=== PATIENT | female | born 1975 | race Hispanic/Latino ===

== ENCOUNTER 2017-09-14 13:56 | Emergency (ER) | payer OTHER, SELFPAY ==
[2017-09-14 14:52] LABS: Bilirubin Negative (Negative); Blood, Urine Negative (Negative); Glucose, Urine (Dipstick) Negative (Negative); Ketone, Urine Negative (Negative); Nitrite Negative (Negative); Protein, Urine (Dipstick) Negative (Neg-Trace); Urobilinogen 0.2 mg/dL (0.2-1.0)
== END 2017-09-14 18:39 | disposition home or self-care (01) ==
LOC: ERS 13:56
DX: F07.81 Postconcussional syndrome (principal); N94.6 Dysmenorrhea, unspecified
CPT/HCPCS: 81003; 81025; 99284

== ENCOUNTER 2018-07-25 12:45 | Outpatient (CLI) | payer OTHER | END 2018-07-25 12:46 | disposition home or self-care (01) | LOC: BICMAMMO 12:45 | PROVIDERS: ATTEND Physical Medicine & Rehabilitation | DX: Z12.31 Encounter for screening mammogram for malignant neoplasm of breast (principal) | CPT/HCPCS: 77063; 77067 ==

== ENCOUNTER 2018-10-20 08:27 | Outpatient (CLI) | payer OTHER ==
--- NOTE | 2018-10-20 10:48 | ULT ---
PELVIC ULTRASOUND: DATE: 10/20/2018. HISTORY: Abnormal vaginal bleeding. FINDINGS: Transabdominal and endovaginal sonographic images of the pelvis are obtained. Uterus and adnexal str uctures are not well evaluated on transabdominal imaging due to shadowing from bowel gas. The uterus measures 8.4 cm x 4 cm x 5.8 cm. The endometrial stripe measures 0.7 cm in thickness whic h is within normal limits in a normal menstruating female patient. No fluid or fluid collection is s een in the endometrial canal. There is a heterogeneous mass seen in the left lateral body of the dionne alla measuring 2.2 cm, likely attributable to a uterine fibroid. The left ovary is not visualized on this examination. The right ovary is visualized and measures 3.1 cm x 1.8 cm x 2.3 cm. There is an anechoic cystic structure seen within the right ovary which measu res approximately 2 cm in greatest dimensions and demonstrates characteristics most compatible with a right ovarian cyst. Doppler evaluation of the right ovary with spectral analysis and color flow evaluation demonstrates a rterial flow in the right ovary. No free fluid is seen in the cul-de-sac. IMPRESSION: 1. Small right ovarian cyst. 2. Nonvisualization of the left ovary. 3. Small uterine fibroid. 4. Endometrial stripe measures 0.7 cm, which is within normal limits in a normal menstruating female patient. POS: KAVITHA
== END 2018-10-20 08:28 | disposition home or self-care (01) ==
LOC: BICULT 08:27
PROVIDERS: ATTEND Family Medicine
DX: N93.9 Abnormal uterine and vaginal bleeding, unspecified (principal); N83.201 Unspecified ovarian cyst, right side; D25.9 Leiomyoma of uterus, unspecified
CPT/HCPCS: 76856

== ENCOUNTER 2019-03-22 16:30 | Inpatient (IN) | payer OTHER ==
[2019-03-20 11:12] VITALS: BMI 31.8
[2019-03-20 12:39] LABS: Hemoglobin 13.2 g/dL (12.0-16.0); Mean Corpuscular Hemoglobin 31.9 pg (27.0-31.0); Mean Corpuscular Volume 96.8 fL (78.0-98.0); Mean Platelet Volume 9.5 fL (7.4-10.4); Platelet Count 274 thou/uL (130-400); RBC Distribution Width 11.2 % (11.5-14.5); Red Blood Cell (RBC) Count 4.13 mill/uL (4.20-5.40); White Blood Cell (WBC) Count 8.2 thou/uL (4.8-10.8)
[2019-03-20 13:13] LABS: BHCG - Serum Negative (NEGATIVE); Pregs Control Background? CLEAR/WHITE (CLR/WHITE); Pregs Control Bar Appear? YES (CONTROL BAR)
--- NOTE | 2019-03-22 10:08 | HP ---
PRIMARY CARE PHYSICIAN: Oracio Vazquez MD She is scheduled for surgery on March 26. HISTORY OF PRESENT ILLNESS: Ms. Carney is a 43-year-old Latin-[place] female with previous ovarian cystectomy, who has been having increasingly heavy menstrual cycles. She is also having severe dysmenorrhea and chronic pelvic pain symptoms. Due to this, she underwent a transvaginal ultrasound evaluation by her primary care provider, Dr. Vazquez. She was noted to have multiple small uterine fibroids on exam with no adnexal masses. She has tried oral contraceptives, Cindi with minimal improvement of her symptoms along with nonsteroidals. She is desiring definitive surgical therapy. PAST MEDICAL HISTORY: Anemia from the menorrhagia. She has no other chronic medical problems. PAST SURGICAL HISTORY: Ovarian cystectomy while she was of one of her pregnancies. CURRENT MEDICATIONS: 1. Cindi. 2. Ferralet 90 mg daily for anemia. ALLERGIES: CODEINE, WHICH CAUSED HER TO HAVE ANXIETY. SOCIAL HISTORY: She is a nonsmoker. No excessive alcohol use. She is . FAMILY HISTORY: Noncontributory. PHYSICAL EXAMINATION: VITAL SIGNS: Her height is 5 feet 2 inches and weight 169 pounds with BMI 30.9. Blood pressure 118/76, pulse 84, and O2 saturation on room air 99%. HEENT: Within normal limits. CHEST: Clear to auscultation. HEART: Regular rate and rhythm. S1 and S2 heart sounds. No murmurs, rubs, or gallops. ABDOMEN: Soft, nontender, and nondistended with no palpable masses. She has a well-healed vertical midline incisional scar from her previous ovarian cystectomy. PELVIC: Vulva and vagina had no lesions. Cervix had no lesions. Pap smear was negative in 2018. There was no gross cervical lesion seen. Uterus was mildly enlarged, approximately 8 weeks with some mild tenderness. Adnexa had some mild tenderness with no adnexal masses. ASSESSMENT: This is a 43-year-old Latin-[place] female with symptomatic uterine fibroids and dysmenorrhea, menorrhagia, unresponsive to medical management. She is desiring definitive surgical therapy. PLAN: For robotic total laparoscopic hysterectomy with bilateral salpingo-oophorectomy scheduled for March 26. Risks and benefits of procedure discussed in detail. She is set for surgery. Job ID: [id number]
[2019-03-26] MEDS ORDERED: Gabapentin 300 MG CAP ONE (09:35)
[2019-03-26] MEDS ORDERED: Famotidine/PF 20 mg/2ml Vial ONE ×2 (09:36)
[2019-03-26] MEDS ORDERED: CeleCOXIB 100 MG CAP ONE (09:37)
[2019-03-26] MEDS ORDERED: Midazolam HCl 2 mg/2 ml Vial ONE ×2 (09:53→10:06)
[2019-03-26] MEDS ORDERED: Fentanyl 250 MCG/5 ML VIAL ONE (10:06)
[2019-03-26] MEDS ORDERED: Lidocaine 2% Jelly 5 ML TUBE ONE (10:07)
[2019-03-26] MEDS ORDERED: Bupivacaine HCl 0.5%/Epinephrine 1:200,000/PF 30 ml Vial ONE (10:12)
[2019-03-26] MEDS ORDERED: Bisacodyl 10 MG SUPP PR PRN (12:00)
[2019-03-26] MEDS ORDERED: traMADol HCl 50 MG TAB PO PRN ×2 (12:00→18:00)
[2019-03-26] MEDS ORDERED: Promethazine HCl 25 MG/ML VIAL SLOW IVP PRN (12:09)
[2019-03-26] MEDS ORDERED: Ondansetron HCl/PF 4 MG/2 ML Vial IVP PRN (12:09)
[2019-03-26] MEDS ORDERED: Promethazine HCl 25 MG/ML VIAL IM PRN ×2 (12:09→12:10)
[2019-03-26] MEDS ORDERED: Zolpidem Tartrate 5 MG TAB PO PRN (12:10)
[2019-03-26] MEDS ORDERED: diphenhydrAMINE 25 MG CAP PO PRN (12:10)
[2019-03-26] MEDS ORDERED: Ondansetron PF 4 MG/2 ML Vial IVP PRN (12:10)
[2019-03-26] MEDS ORDERED: Loratadine 10 MG TAB PO PRN (12:15)
[2019-03-26] MEDS ORDERED: Fentanyl 100 MCG/2 ML VIAL ONE ×2 (12:29→12:47)
[2019-03-26] MEDS ORDERED: Estradiol 0.1mg/24 Hour Patch (Weekly) TD SCH (12:30)
[2019-03-26] MEDS ORDERED: Simethicone Chewable 80 MG TAB PO PRN (13:00)
--- NOTE | 2019-03-26 13:08 | OP ---
DATE OF PROCEDURE: 03/26/2019 PREOPERATIVE DIAGNOSES: 1. A 43-year-old female, G6, P6, with symptomatic uterine fibroids. 2. Menorrhagia and dysmenorrhea, unresponsive to medical management. 3. Desires definitive surgical therapy. POSTOPERATIVE DIAGNOSES: 1. A 43-year-old female, G6, P6, with symptomatic uterine fibroids. 2. Menorrhagia and dysmenorrhea, unresponsive to medical management. 3. Desires definitive surgical therapy. PROCEDURES PERFORMED: Robotic total laparoscopic hysterectomy and bilateral salpingo-oophorectomy. TEAR DOWN MATCHER SURGEON: Charlene Maxwell PA-C ANESTHESIA: General endotracheal. ESTIMATED BLOOD LOSS: 50 mL. COMPLICATIONS: None. COUNTS: Correct x2. ANTIBIOTICS: 2 g of Ancef on-call to OR. PATHOLOGY: Uterus, cervix, bilateral tubes and ovaries. FINDINGS: 1. Mildly enlarged uterus with uterine fibroid in a boggy nature suggestive of adenomyosis. 2. Normal bilateral fallopian tubes and ovaries. 3. Clear urine present in Ruffin catheter postprocedure and bladder was watertight to distention over 300 mL postprocedure. 4. Bilateral ureteral peristalsis visualized postprocedure. 5. The patient had some posterior cul-de-sac adhesions to the rectum, status post adhesiolysis. DISPOSITION: Recovery room, stable. DESCRIPTION OF PROCEDURE: The patient previously received informed consent in regard to surgery. She was taken back to the operating room, where she received a general endotracheal anesthetic agent without complications. She was placed in the dorsal lithotomy position with the use of Armand stirrups and prepped and draped in usual sterile fashion. Ruffin catheter was placed at this time. At this time, a sidearm speculum placed in vagina. Anterior lip of cervix was grasped with single-tooth tenaculum. The uterus sounded to 8 cm and size 8 cm SHANNEN uterine manipulator 4.0 cm cervical cup was placed in usual fashion. Attention was then turned to the abdomen, where perspective trocar sites were infiltrated with 0.5% Marcaine with epinephrine. A 12 mm supraumbilical incision was made. The Veress needle was entered into the peritoneal cavity. The patient's pressure was noted to be less than 5 mm. Abdomen was insufflated with pressure of 15. Approximately 4.5 L of carbon dioxide gas was instilled. The Veress needle was removed and a size 12 mm trocar was placed. The robotic laparoscope was introduced through the trocar sleeve confirming proper entry. Additional bilateral lower quadrant 8 mm trocars were placed along with the right upper quadrant 11 mm trocar. The patient was placed in Trendelenburg position and the robot was docked in usual fashion. I proceeded to carry out the surgery from the operative console while my field administrative assistant remained at the bedside. The uterus was elevated. The left fallopian tube and ovary were grasped by my field administrative assistant with an atraumatic grasper. The course of the ureter was noted to be beneath the IP ligament and well away from the intended cauterization of the IP ligament. The left IP ligament was cauterized and then transected with monopolar scissors. Serial coagulation and transection of the broad ligament to the left round ligament were reached was carried out. The left round ligament was cauterized and transected and then the anterior leaf of the broad ligament was entered. The vesicouterine peritoneum was dissected, its leaves were dissected both sharply and bluntly past the cervical vaginal angle, which was delineated by the cup of the uterine manipulator. The left uterine vessels were skeletonized and the medial leaf of the broad ligament was dissected away from the course of the lateral pelvic sidewall from the uterus. The uterine vessels were then coagulated in the internal cervical os region with bipolar fenestrated cautery. This was carried out on similar fashion on the right side of the uterus. Again, the right adnexal structures were grasped by my field administrative assistant. The right IP ligament was coagulated and transected with bipolar fenestrated cautery and monopolar scissors. Serial coagulation of the broad ligament was coagulated and transected until the right round ligament was reached. It was coagulated and transected. The anterior leaf of the broad ligament was entered and again, the vesicouterine peritoneum and bladder flap were dissected atraumatically past the cervical vaginal angle. Uterine vessels were again were skeletonized dissecting the medial leaf of the broad ligament laterally from the uterus. The course of the ureter was noted to be well below and lateral to the operative sites. The uterine vessels were coagulated in the internal cervical os region and transected. We tested the bladder for watertightness integrity in this position and noted to be well away from the anticipated anterior colpotomy. The anterior colpotomy was then made over the cervical cup. It was coagulated towards the 3 and 9 o'clock position. Posterior colpotomy was completed from 6 to 3 and 6 to 9, completing the colpotomy. The specimen was then delivered in the vaginal vault. The monopolar scissors were switched out for a Andrew needle piledriver carpenter. The vaginal cuff was cauterized for any areas of oozing and the pelvic sidewalls inspected, hemostasis was confirmed. Pelvis had been irrigated and suctioned. A Stratafix suture was then brought into the operative field by my field administrative assistant through the right upper quadrant port. The vaginal cuff was closed in full-thickness closure starting the left angle back towards the midline, securing hemostasis and closure of the vaginal cuff. The needle and suture were removed from the right upper quadrant field administrative assistant port. Again, all the pedicle sites were inspected. Hemostasis confirmed. Bilateral ureteral peristalsis was visualized. The Ruffin catheter was draining clear urine. The robot was then undocked. Trocar sleeves were removed. A deep stitch of 0 Vicryl in a pursestring fashion was placed in the supraumbilical fascial defect. The rest of the trocar sites were closed with 4-0 Monocryl and Dermabond. The vaginal vault was checked with a dry sponge stick and no active bleeding was noted vaginally. The patient was then awakened from her anesthesia and transferred to recovery room in stable condition. Job ID: [id number]
[2019-03-26] MEDS ORDERED: Estradiol 0.1mg/24 Hour Patch (Weekly) TD ONE (13:18)
[2019-03-26] MEDS: Morphine 4 MG/ML VIAL SLOW IVP PRN ×2 (13:58→15:34)
[2019-03-26] MEDS: Ketorolac Tromethamine 30 MG/ML VIAL IVP SCH ×3 (14:03→23:24)
[2019-03-26] MEDS: Sodium Chloride 0.9% 1,000 ML IV SCH ×2 (14:05→22:29)
[2019-03-26] MEDS: Acetaminophen 1,000 MG in Premix Bag 1 BAG IVPB SCH ×2 (14:53→21:12)
[2019-03-26] MEDS ORDERED: Morphine 4 MG/ML VIAL SLOW IVP PRN (15:38)
[2019-03-26] MEDS ORDERED: Dexamethasone 20 MG/5 ML VIAL ONE (16:30)
[2019-03-26] MEDS ORDERED: PROPOFOL 200 MG/20 ML VIAL ONE (16:30)
[2019-03-26] MEDS ORDERED: Ondansetron PF 4 MG/2 ML Vial ONE (16:30)
[2019-03-26] MEDS ORDERED: Lidocaine 1% PF 5 ML VIAL ONE (16:30)
[2019-03-26] MEDS ORDERED: Rocuronium Bromide 10 MG/ML (10ML VIAL) ONE (16:30)
[2019-03-26] MEDS ORDERED: Glycopyrrolate 0.2 MG/ML 5 ML SYRINGE ONE (16:30)
[2019-03-26] MEDS ORDERED: Acetaminophen 1,000 MG in Premix Bag 1 BAG IVPB SCH (18:00)
[2019-03-26] MEDS: Ibuprofen 800 MG TAB PO SCH (21:17)
[2019-03-27] MEDS: Sodium Chloride 0.9% 1,000 ML IV SCH ×2 (02:03→13:07)
[2019-03-27] MEDS: Ketorolac Tromethamine 30 MG/ML VIAL IVP SCH ×2 (05:12→13:06)
[2019-03-27 08:57] LABS: Mean Corpuscular HGB CONC 32.9 g/dL (32.0-36.0); Mean Corpuscular Hemoglobin 31.7 pg (27.0-31.0); Mean Corpuscular Volume 96.4 fL (78.0-98.0); Mean Platelet Volume 7.8 fL (7.4-10.4); Platelet Count 330 thou/uL (130-400); RBC Distribution Width 11.2 % (11.5-14.5); White Blood Cell (WBC) Count 13.4 thou/uL (4.8-10.8)
[2019-03-27] MEDS: Ibuprofen 800 MG TAB PO SCH (10:04)
[2019-03-27 12:13] VITALS: BP 120/61; TEMP 98.3
--- NOTE | 2019-03-27 17:13 | DIS ---
DATE OF ADMISSION: 03/26/2019 DATE OF DISCHARGE: 03/27/2019 DIAGNOSES: 1. Uterine fibroids. 2. Menorrhagia. 3. Dysmenorrhea. SUMMARY OF HOSPITAL COURSE: Ms. Carney is a 43-year-old female, G6, P6, who has been having progressive menorrhagia and dysmenorrhea with notice of uterine fibroids on ultrasound evaluation. She has tried oral contraceptives and NSAIDs with no improvement in her symptoms. She underwent definitive surgical therapy on 03/26/2019. Robotic total laparoscopic hysterectomy with bilateral salpingo-oophorectomy was performed. Postoperatively, the patient has done well. Vital signs remained stable and she was ambulating, voiding, and tolerating diet on postop day #1. Pathology is pending at the time of dictation, but she has a scheduled followup in 2 and 6 weeks. Discharge medications will be tramadol 50 mg q.6 hours p.r.n. pain, [id number] ibuprofen as directed, and also estradiol tablet 1 mg p.o. daily. Job ID: [id number]
== END 2019-03-27 18:00 | disposition home or self-care (01) | DRG 743 ==
LOC: SURG A 03-26 08:59 → 3SE 03-26 13:53 → EDSTATUS 03-26 16:30
PROVIDERS: ADMIT Obstetrics & Gynecology; ATTEND Obstetrics & Gynecology
PROC: 0UT94ZZ Resection of Uterus, Percutaneous Endoscopic Approach (ICD-10-PCS; principal; 2019-03-26)
PROC: 0UT24ZZ Resection of Bilateral Ovaries, Percutaneous Endoscopic Approach (ICD-10-PCS; 2019-03-26)
PROC: 0UT74ZZ Resection of Bilateral Fallopian Tubes, Percutaneous Endoscopic Approach (ICD-10-PCS; 2019-03-26)
DX: D25.9 Leiomyoma of uterus, unspecified (principal); D64.9 Anemia, unspecified; Z88.5 Allergy status to narcotic agent
CPT/HCPCS: 36415; 84703; 85027; 86850; 86900; 86901; 88307; J0131; J0670; J0690; J1100; J1885; J2001; J2250; J2270; J2405; J2704; J3010; S0028